=== PATIENT | male | born 1950 | race Caucasian/White ===

== ENCOUNTER 2021-01-31 17:33 | Emergency (ER) | payer OTHER, MEDICARE ==
[~2021-01-31] VITALS: Ht 182.9 cm; Wt 63.5 kg
[~2021-01-31 17:33] MED LIST: ACETAMINOPHEN325 M1 PO; ADULT LOW DOSE81 MG PO; AMBIEN 10 MG TA10 MG PO; AMBIEN 5 MG TABL5 M1 PO; APAP500 PO; ASPIRIN EC81 M1 PO; AUGMENTIN 875875 M1 PO; AYR SALINE NASA14 GM TOP; BISACODYL SUPP10 MG RECTAL; CARVEDILOL3.125 MG PO; CELEXA 20 MG TA20 M1 PO; CELLCEPT 250 M250 M1 PO; CHLORTHALIDONE25 MG PO; COLACE100 MG PO; COUMADIN 3 MG TA3 MG PO; COUMADIN 5 MG TA5 M1 PO; CYCLOSPORINE100 M1 PO; DOXYCYCLINE 10100 MG PO; FLEXERIL PO; FLOMAX PO; HYDROCODONE-AP1 EA10 PO; JANTOVEN2.5 MG PO; LAMICTAL100 MG PO; LAMICTAL200 MG PO; LORAZEPAM 0.50.5 MG PO; LORTAB 5 MG/5001 TA1 PO; LORTAB 5-325 M1 EACH PO; LORTAB 7.5/5001 TA1 PO; LOXAPINE10 MG PO; LOXAPINE25 MG PO; LOXITANE PO; MAGOX 400400 MG PO; MELOXICAM7.5 MG PO; MULTIVITAMINS PO; MULTIVITAMINS1 EAC7 PO; MYFORTIC PO; MYFORTIC180 MG PO; MYFORTIC360 MG PO; NEPHRO-VITE TA0.8 MG PO; NEURONTIN 300M300 M1 PO; NEURONTIN 300M300 M2 PO; NEURONTIN 400M400 M2 PO; NORCO 5-325 TA1 EACH; NORVASC 5 MG TAB5 MG PO; ONDANSETRON HCL4 M2 PO; PREDNISONE 5 MG5 M1 PO; PROGRAF0.5 MG PO; PROGRAF1 MG PO; PROTONIX 20 MG20 MG PO; PROTONIX40 M2 PO; SENNA S TABLET1 EACH PO; SENNALAX-S TAB1 EACH PO; TACROLIMUS0.5 MG PO; TAMSULOSIN HCL0.4 MG PO; TYLENOL325 MG PO; UNICOMPLEX M TA1 TA1 PO; VITAMIN D-32000 UNIT PO; VITAMIN D1000 UNI1 PO
[2021-01-31 18:52] VITALS: BP 144/75
== END 2021-01-31 19:12 | disposition short-term general hospital (02) ==
LOC: ER 17:33
DX: R41.0 Disorientation, unspecified (principal); I25.2 Old myocardial infarction; E11.9 Type 2 diabetes mellitus without complications; Z95.1 Presence of aortocoronary bypass graft; Z87.891 Personal history of nicotine dependence; Z79.899 Other long term (current) drug therapy; Z88.8 Allergy status to other drugs, medicaments and biological substances

== ENCOUNTER 2021-10-06 02:31 | Inpatient (IN) | payer OTHER, MEDICARE ==
[~2021-10-06] VITALS: Ht 177.8 cm; Wt 77.1 kg
--- NOTE | ~2021-10-06 | EMS ---
[facility] [address] [place] [address] EMS Patient Care Report Name: ROBER NARAYAN Room #: 170-9 ADM IN M.R.#: [id number] Admission: 10/06/21 Attend Phys: Vitor Dinh DO Discharge: Date of : 46 Report #: [id number] THIS REPORT FOR: //name// Report Transmitted: 10/06/2021 06:30 EMS Care Summary [place], [place]/[facility] Incident [id number] @ 10/06/2021 02:08 Incident Location [facility] Patient ROBER NARAYAN Male, 70 Years 1950 Patient Address [address] [place] [address] Patient History Other,Dementia,Diabetes,Kidney/Renal Failure,Seizures,Gastro-Esophageal Reflux Disease (GERD),Hepatitis C (Without Hepatic Coma),Pneumonia,Depression,Anxiety,Tremors, Chief Complaint altered LOC Disposition Transported No Lights/[place] Reason Breathing Problem Transported To [facility] Narrative pt found supine in bed. staff states the pt was seen by nurse practitioner yesterday and IV fluids were ordered for the pt. this morning, the pt has been minimally responsive. staff reports he normally is oriented x 2. now, he will only attempt to open eyes to loud verbal, no other response. pt has fever of 100. pt blanket pulled to cot, VS, transport w/o incident to [facility]. report to [facility] [address] [place] [address] EMS Patient Care Report Name: ROBER NARAYAN Room #: 170-9 ADM IN M.R.#: [id number] Admission: 10/06/21 Attend Phys: Vitor Dinh, DO Discharge: Date of : 46 Report #: [id number] staff. Initial Vitals @02:20P: 100,R: 24,BP: 125/68,GCS: 8,Temp: 100F,Glucose: 122,SpO2: 93,Revised Trauma: 10, Assessments @02:20MENTAL:Other,SKIN:Hot,HEENT:Head/Face: No Abnormalities,LUNG SOUNDS:ABDOMEN:PELVIS//GI:EXTREMITIES:PULSE:NEURO: Impression Altered Mental Status Procedures @02:20 ALS Assessment Response: Unchanged @02:23 Stretcher Response: Unchanged Timeline 02:06,Call Received 02:06,Dispatch Notified 02:08,Dispatched 02:10,En Route 02:16,On Scene 02:19,At Patient 02:20,ALS Assessment,Response: Unchanged 02:20,BP: 125/68 M,PULSE: 100,RR: 24 R,SPO2: 93 Ox,ETCO2: ,B,PAIN: ,GCS: 8, 02:23,Stretcher,Response: Unchanged 02:25,Depart Scene 02:28,At Destination 02:47,Call Closed Disclaimer v1.1 Copyright 2020 [employer] This EMS Care Summary contains data elements from the applicable legal record (which may be displayed differently). It is designed to provide pertinent information for the following purposes: continuity of care, clinical quality, and state data reporting. The complete legal record is available to ED staff and administrators of the receiving hospital in [facility]'s Patient Tracker. All data is provided "as is."
--- NOTE | ~2021-10-06 | EMS ---
[address] [address] EMS Patient Care Report Name: ROBER NARAYAN Room #: 170-17 ADM IN M.R.#: [id number] Admission: 10/06/21 Attend Phys: Vitor Dinh DO Discharge: Date of : 46 Report #: [id number] THIS REPORT FOR: //name// Report Transmitted: 10/07/2021 09:05 EMS Care Summary [place], [place]/[facility] Incident [id number] @ 10/07/2021 07:50 Incident Location [address] [place] [address] Patient GLADYS LANGSTON Female, 27 Years 1994-07-12 Patient Address [address] [place] [address] Patient History Diabetes,Hypertension (HTN),Dialysis, Patient Allergies No known allergies, Patient Medications Carvedilol, Amlodipine, Gabapentin, Insulin, Tramadol, Furosemide, Chief Complaint Altered mental status Disposition Transported No Lights/[place] Dispatch Reason Sick Person Transported To [facility] Narrative Arrived on scene to meet P41 with the patient. Family had called EMS after noticing the patient was acting abnormally. Family stated that shortly prior to EMS arrival the patient had what the described as seizure like activity. Upon P41 arrival patient was GCS11 and a glucose [place] [address] EMS Patient Care Report Name: ROBER NARAYAN Room #: 170-17 ADM IN .R.#: [id number] Admission: 10/06/21 Attend Phys: Vitor Dinh, DO Discharge: Date of : 46 Report #: [id number] established and Dextrose administered. After the 125cc dose of Dextrose 10% the patient immediately regained consciousness to a GCS15/AO4. A sandwich was made for the patient and the patient stated she did not want to go to a hospital. The patient's mother convinced the patient to go to the hospital. Patient was assisted into walking to the ambulance. Patient transported and transferred to receiving facility without change in patient condition. Initial Vitals @08:21P: 112,R: 16,BP: 147/92,GCS: 15,Glucose: 87,SpO2: 99,Revised Trauma: 12, @08:08P: 114,R: 16,BP: 128/66,Pain: 0/10,GCS: 15,Glucose: 86,SpO2: 99,Revised Trauma: 12, @08:04P: 103,R: 14,BP: 121/68,Pain: 0/10,GCS: 11,Glucose: -1,SpO2: 98,Revised Trauma: 11, Assessments @08:00MENTAL:Unresponsive,Confused,SKIN:HEENT:Head/Face: No Abnormalities,Eyes: No Abnormalities,Neck/Airway: No Abnormalities,LUNG SOUNDS:General: No Abnormalities,Left Upper: No Abnormalities,Right Upper: No Abnormalities,Left Lower: No Abnormalities,Right Lower: No Abnormalities,ABDOMEN:General: No Abnormalities,Left Upper: No Abnormalities,Right Upper: No Abnormalities,Left Lower: No Abnormalities,Right Lower: No Abnormalities,PELVIS//GI:No Abnormalities,EXTREMITIES:Left Arm: No Abnormalities,Right Arm: No Abnormalities,Left Leg: No Abnormalities,Right Leg: No Abnormalities,PULSE:NEURO:Seizures,@08:15MENTAL:Person Oriented,Event Oriented,Place Oriented,Time Oriented,SKIN:HEENT:Head/Face: No Abnormalities,Neck/Airway: No Abnormalities,LUNG SOUNDS:General: No Abnormalities,Left Upper: No Abnormalities,Right Upper: No Abnormalities,Left Lower: No Abnormalities,Right Lower: No Abnormalities,ABDOMEN:General: No Abnormalities,Left Upper: No Abnormalities,Right Upper: No Abnormalities,Left Lower: No Abnormalities,Right Lower: No Abnormalities,PELVIS//GI:No Abnormalities,EXTREMITIES:Left Arm: No Abnormalities,Right Arm: No Abnormalities,Left Leg: No Abnormalities,Right Leg: No Abnormalities,PULSE:NEURO:No Abnormalities, Impression Diabetic Hypoglycemia Procedures @PTAALS Assessment Response: UnchangedSucceeded @08:00 IV Therapy - Saline Lock 10cc (18 ga) Site: Antecubital-Right Response: UnchangedSucceeded @08:01 Dextrose 10% - 125 Milliliters (ml) - Intravenous (IV) Response: Improved Timeline SCENIC ARTIST,ALS Assessment,Response: UnchangedSucceeded, [address] [address] EMS Patient Care Report Name: ROBER NARAYAN Room #: 170-17 ADM IN M.R.#: [id number] Admission: 10/06/21 Attend Phys: Vitor Dinh DO Discharge: Date of : 46 Report #: [id number] 07:47,Call Received 07:47,Dispatch Notified 07:50,Dispatched 07:51,En Route 07:58,On Scene 08:00,At Patient 08:00,IV Therapy - Saline Lock 10cc 18 ga Site: Antecubital-Right,Response: UnchangedSucceeded, 08:01,Dextrose 10% - 125 Milliliters (ml) - Intravenous (IV),Response: Improved 08:04,BP: 121/68 M,PULSE: 103,RR: 14 R,SPO2: 98 Ox,ETCO2: ,BG: -1,PAIN: 0,GCS: 11, 08:08,BP: 128/66 M,PULSE: 114,RR: 16 R,SPO2: 99 Ox,ETCO2: ,B,PAIN: 0,GCS: 15, 08:19,Depart Scene 08:21,BP: 147/92 M,PULSE: 112,RR: 16 R,SPO2: 99 Ox,ETCO2: ,B,PAIN: ,GCS: 15, 08:35,At Destination 08:50,Call Closed Disclaimer v1.1 Copyright 2020 [employer] This EMS Care Summary contains data elements from the applicable legal record (which may be displayed differently). It is designed to provide pertinent information for the following purposes: continuity of care, clinical quality, and state data reporting. The complete legal record is available to ED staff and administrators of the receiving hospital in [facility]'s Patient Tracker. All data is provided "as is."
[2021-10-06 02:34] VITALS: BP 138/75
[2021-10-06 03:17] LABS: HEMATOCRIT 35.1 % (42.0-52.0); HEMOGLOBIN 10.8 gm/dL (14.0-18.0); MCHC 30.8 g/dL (28.0-37.0); PLATELET COUNT 149 thou/uL (150-400); RBC 3.86 mil/uL (4.50-6.00); RDW 17.2 % (10.5-14.5); WBC 17.7 thou/uL (4.0-11.0)
[2021-10-06 03:35] LABS: CALCIUM 8.8 mg/dL (8.5-10.1); POTASSIUM 4.6 mmol/L (3.5-5.1)
[2021-10-06 03:43] LABS: APTT 28.8 Seconds (24.5-32.8); INR 1.14; PROTIME 12.4 Seconds (10.5-12.1)
[2021-10-06 03:56] LABS: ALBUMIN 2.1 g/dL (3.4-5.0); TOTAL BILIRUBIN 0.3 mg/dL (0.2-1.0); TOTAL PROTEIN 6.6 g/dL (6.4-8.2)
--- NOTE | 2021-10-06 04:17 | NUR ---
[facility] CANNOT ACCEPT AT [facility] , THEY ARE HOLDING ICU PT IN ER. DR GONZALEZ TALKING TO TRANSFER LINE NOW,
[2021-10-06 04:27] LABS: ABSOLUTE NEUTROPHILS 14.7 thou/uL (1.4-8.2); ANISOCYTOSIS 1+; PLATELET ESTIMATE DECREASED; POIKILOCYTOSIS 1+
--- NOTE | 2021-10-06 05:02 | NUR ---
DR WALDRON TALKED WITH DAUGHTER, SAM,PT IS DNR, WILL NOTIFY ALSO PT TO STAY HER FOR TIME BEING
--- NOTE | 2021-10-06 08:52 | EKG ---
[address] [place] [address] ELECTROCARDIOGRAM REPORT Name: ROBER NARAYAN Room #: 170-9 ADM IN M.R.#: [id number] Admission: 10/06/21 Attend Phys: Vitor Dinh DO Discharge: Date of : 46 Report #: [id number] [facility] ED Test Date: 2021-10-06 Test Time: 02:46:36 Pat Name: ROBER NARAYAN Department: Room: 170 Gender: M Food And Beverage Manager: ERNESTINA : 1950 Requested By: Olaf Wu Order Number: [id number] MD: Ron Castillo Measurements Intervals [place] Rate: 100 P: UT: QRS: 63 QRSD: 154 T: 43 QT: 385 QTc: 497 Interpretive Statements Atrial fibrillation Ventricular premature complex Right bundle branch block Anterolateral infarct, age indeterminate Compared to ECG 09/18/2016 12:39:26 Ventricular premature complex(es) now present Myocardial infarct finding now present Electronically Signed On 10-06-2021 8:52:19 DUMPMAN by Ron Castillo [email or web address] <ELECTRONICALLY SIGNED> By: Ron Castillo MD, [facility] 10/06/21 0852 5 5 Ron Castillo MD, [facility] /EPI
--- NOTE | 2021-10-06 09:41 | NUR ---
New order [facility] eval and tx. [facility]. CM spoke with hospice, they will call ED when nurse is on the way for eval.
[2021-10-06] MEDS ORDERED: LORAZEPAM 22 MG/1 ML IV PUSH (17:29)
[2021-10-06] MEDS ORDERED: MORPHINE 11 MG/2 ML IV (17:29)
[2021-10-07 01:59] VITALS: BP 109/56
[2021-10-07 04:38] VITALS: BP 106/59
--- NOTE | 2021-10-07 08:06 | H ---
[facility] [place] [address] HISTORY AND PHYSICAL Name: ROBER NARAYAN Room #: 170-17 ADM IN M.R.#: [id number] Admission: 10/06/21 Attend Phys: Vitor Dinh DO Discharge: Date of : 46 Report #: [id number] THIS REPORT FOR: cc: Damián Berry MD,Vitor Berry MD, DO ~ DATE OF SERVICE: 10/06/2021 HISTORY OF PRESENT ILLNESS: This 70-year-old white male who was transferred from [facility] with prostration, sedation, hypotension, fever and sepsis. The patient has a recent complicated history. He was hospitalized several months ago at [facility] initially for rose in his left forearm complicated by lower GI bleed. He went to [facility], developed urosepsis and was admitted at [facility] treated for the infection. He then had been able to return to his independent apartment; however, he developed recurrent urosepsis and was admitted to [facility] on 09/01/2021, during which time, he was found to have a Citrobacter UTI, neurogenic bladder with urinary retention, acute delirium, psychotic agitation and subsequently C. diff enterocolitis. We had to leave an indwelling Barreto because he had neurogenic bladder. He was at [facility] at [facility], where I had seen him several days ago there, at which time, he was somewhat confused still, but was pleasant and cooperative, and was in no pain. He had clear urine in his Barreto bag, but was somewhat confused. Last night, he developed fever and prostration and was sent in Emergency Room early this morning and he was found to be severely septic with acute kidney injury, creatinine 7.0. PAST MEDICAL HISTORY: Other than the above, the patient has chronic immunosuppression following kidney transplant x2 for end-stage renal disease and pancreatic transplant for type 1 diabetes. He has had severe peripheral neuropathy, orthostatic hypotension, coronary artery disease with coronary bypass surgery, hepatitis C from blood transfusions, treated by Dr. 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 MEDICATIONS: On admission, Haldol 1 mg p.o. at bedtime, tacrolimus 1 mg b.i.d., quetiapine 25 mg b.i.d., mycophenolate 360 mg b.i.d. and 250 mg b.i.d., KCl 20 mEq daily, amlodipine 5 mg daily, lamotrigine 200 mg b.i.d., gabapentin 400 mg daily, lamotrigine 200 mg b.i.d., gabapentin 400 mg daily, vitamin D 1000 units daily, vitamin B12 of 1000 mcg daily, bupropion XL 150 mg daily. ALLERGIES: FENTANYL, PAROXETINE and METOCLOPRAMIDE. PHYSICAL EXAMINATION: [address] [address] HISTORY AND PHYSICAL Name: ROBER NARAYAN Room #: 170-17 ADM IN M.R.#: [id number] Admission: 10/06/21 Attend Phys: Vitor Dinh DO Discharge: Date of : 46 Report #: [id number] GENERAL: A moribund, sedated white male, moaning significant when his abdomen is palpated. He nods his head appropriately at times. When asked if he was comfortable, he seemed to nod yes, but when I palpate his abdomen, I asked are you in pain and he has nodded his head yes. VITAL SIGNS: BP 99/60, pulse 96, respirations 14, temperature 38.6. HEAD: No rash or trauma. Looks somewhat cachectic. NECK: Supple. LUNGS: Clear. HEART: Irregularly irregular rhythm without significant murmur. ABDOMEN: Slightly distended with apparent tenderness, but no rebound. EXTREMITIES: Burn on his left forearm has healed well. There is no peripheral edema. He does have some really pressure sores on his heels bilaterally. NEUROLOGIC: He is not alert, oriented or coherent. LABORATORY DATA: Blood sugar is 101. COVID-19 PCR negative. Rapid influenza test negative. White count elevated at 17,000, hemoglobin 10.8, MCV 91, platelets 149,000. Protime/INR 1.1. Sodium 134, potassium 4.6, CO2 of 19, BUN 59, creatinine 7.0. Last week at discharge from [facility], his creatinine was 1.4. Lactic acid is normal here. Calcium 8.8. GOT 162, alkaline phosphatase 92. CPK 2800. C-reactive protein 290 and CPK 10,500 and troponin markedly elevated also. . Albumin low at 2.1. Procalcitonin high at 7.1. CAT scan of the chest shows no acute process. Ultrasound of the kidneys shows no acute process. CAT scan of the head showed no acute intracranial abnormality, but did show chronic microvascular disease. There has been no urine obtained for urinalysis. IMPRESSION: 1. Septic shock, probably due to urosepsis. 2. Acute kidney injury with anuria. 3. Chronic immunosuppression. 4. Recent Clostridium difficile enterocolitis and urosepsis. 5. Anxiety and depression. 6. History of delirium with psychotic behavior. 7. Peripheral neuropathy, severe 8. History of orthostatic hypotension. 9. Moderate protein-calorie malnutrition. 10. Chronic anemia. 11. Chronic atrial fibrillation. 12. History of coronary artery bypass. 13. Chronic immunosuppression per transplant of kidney and pancreas. 14. caridac enzyme elevation consistent with acute myocardial ischemia. PLAN: I have started fluids for resuscitation and IV antibiotics. We will consult Nephrology and Infectious Disease, both of whom saw the patient at his recent admission at [facility]. His was considering hospice if he did poorly [facility] [address] [address] HISTORY AND PHYSICAL Name: ROBER NARAYAN Room #: 170-17 ADM IN M.R.#: [id number] Admission: 10/06/21 Attend Phys: Vitor Dinh DO Discharge: Date of : 46 Report #: [id number] at [facility], will be speaking with her and her daughter about continuing aggressiveness of care. Prognosis guarded to poor. <ELECTRONICALLY SIGNED> By: Vitor Dinh DO 10/07/21 0806 0949 1053 Vitor Dinh DO /nt
--- NOTE | 2021-10-07 15:34 | NUR ---
SPOKE WITH HOSPICE THEY WOULD LIKE PATIENT TO BE TRANSPORTED AT 1900.
--- NOTE | 2021-10-07 19:19 | NUR ---
Confirmed set up of transport to [facility] with [facility]ETA is 2030 but was notified that their stretcher van is running behind. No updated ETA given.
[2021-10-07 20:24] VITALS: BP 100/53
--- NOTE | 2021-10-09 08:01 | D ---
[facility] [address] [place] [address] DISCHARGE SUMMARY Name: ROBER NARAYAN Room #: 170-17 [facility] IN M.R.#: [id number] Admission: 10/06/21 Attend Phys: Vitor Dinh DO Discharge: 10/07/21 Date of : 46 Report #: [id number] THIS REPORT FOR: cc: Damián Berry MD, Christopher B. MD Cohen, Donald L. DO ~ DATE OF SERVICE: 10/07/2021 HOSPITAL COURSE: This 70-year-old white male was transferred to the Emergency Room from [facility] with fever, sedation, hypotension and anuria. The patient was recovering at [facility] from recent urosepsis and C. diff enterocolitis. He had been severely delirious and psychotic at times at the hospital. On [facility], he was semi-alert, but comfortable and eating a little. His past history includes hospitalizations at [facility], [facility] in the last 1-2 months. He has chronic immunosuppression from kidney transplants x 2 and pancreatic transplant x 1 for type 1 diabetes and end-stage renal disease. He has had severe peripheral neuropathy and orthostatic hypotension with multiple falls and fractures and subdural hematoma. He had coronary artery bypass surgery many years ago and chronic atrial fibrillation. He has had episodic neurogenic bladder with urinary retention, which occurred on his most recent hospitalization. 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 Initial physical revealed a moribund, sedated white male, moaning especially when his abdomen was palpated. At times, he nodded his head appropriately. Lungs were clear. Cardiac exam revealed chronic atrial fibrillation. Extremities revealed a burn on his left forearm, was healing well. There was no peripheral edema. He had some pressure sores on his heels. COVID PCR was negative. Blood sugar 101. Rapid influenza test negative. White count elevated at 17,000, hemoglobin 10.8. Sodium 134, potassium 4.6, CO2 of 19, BUN 59, creatinine up to 7.0. It had been 1.4 on discharge from the hospital over a week ago. Liver enzymes were up. CPK was high. C-reactive protein was high at 290. Serum troponin was markedly elevated. Albumin was low at 2.1. Procalcitonin high at 7.1. CAT scan of the chest showed no acute process. Ultrasound of the kidneys showed no acute process. CAT scan of the head showed chronic microvascular changes. He made no urine that could be obtained for urine culture. Blood cultures were obtained and are negative at the time of this dictation. He was admitted with presumptive diagnosis of septic shock and acute myocardial ischemia and acute kidney failure. Antibiotics were begun in the Emergency Room. The patient received IV fluids. His and daughter were contacted by me and they both requested that we change his care to comfort measures because of his generalized deterioration [address] [address] DISCHARGE SUMMARY Name: ROBER NARAYAN Room #: 170-17 DIS IN M.R.#: [id number] Admission: 10/06/21 Attend Phys: Vitor Dinh DO Discharge: 10/07/21 Date of : 46 Report #: [id number] over the last month and very poor prognosis. This had been corroborated by Dr. Jerome on recent hospitalization and again here at [facility]. The patient remained moribund, spiked a fever as high as 103. Consultation with [facility] was obtained and on the evening of 10/07/2021, he was transferred by ambulance to the hospice house for comfort care. FINAL DIAGNOSES: Septic shock, acute renal failure with anuria, acute myocardial ischemia, chronic immunosuppression, chronic atrial fibrillation, chronic anemia, organic brain syndrome, peripheral neuropathy, coronary artery disease status post coronary artery bypass. <ELECTRONICALLY SIGNED> By: Vitor Dinh DO 10/09/21 0801 0622 0639 Vitor Dinh DO /nt
== END 2021-10-07 20:38 | disposition hospice, inpatient (51) | DRG 871 ==
LOC: ER 02:31 → EROBS 04:59 → ER 05:14 → EROBS 05:14
PROVIDERS: Emergency Medicine; ADMIT Internal Medicine; ATTEND Internal Medicine
DX: A41.9 Sepsis, unspecified organism (principal); R65.21 Severe sepsis with septic shock; E43 Unspecified severe protein-calorie malnutrition; N17.9 Acute kidney failure, unspecified; D84.9 Immunodeficiency, unspecified; I48.20 Chronic atrial fibrillation, unspecified; G93.40 Encephalopathy, unspecified; Z94.0 Kidney transplant status; Z94.83 Pancreas transplant status; Z96.643 Presence of artificial hip joint, bilateral; I10 Essential (primary) hypertension; I51.3 Intracardiac thrombosis, not elsewhere classified; D64.9 Anemia, unspecified; F09 Unspecified mental disorder due to known physiological condition; F41.9 Anxiety disorder, unspecified; I25.10 Atherosclerotic heart disease of native coronary artery without angina pectoris; F32.9 Major depressive disorder, single episode, unspecified; G25.0 Essential tremor; N31.9 Neuromuscular dysfunction of bladder, unspecified; R33.9 Retention of urine, unspecified; E11.42 Type 2 diabetes mellitus with diabetic polyneuropathy; I25.2 Old myocardial infarction; Z95.1 Presence of aortocoronary bypass graft; Z86.19 Personal history of other infectious and parasitic diseases; Z87.891 Personal history of nicotine dependence; Z88.8 Allergy status to other drugs, medicaments and biological substances; Z68.24 Body mass index [BMI] 24.0-24.9, adult; Z51.5 Encounter for palliative care; Z20.822 Contact with and (suspected) exposure to COVID-19